=== PATIENT | female | born 1970 | race African-American/Black ===

== ENCOUNTER 2017-11-27 06:21 | Emergency (ER) | payer SELFPAY ==
[2017-11-27] MEDS ORDERED: Ketorolac Tromethamine 60 MG/2 ML VIAL ONE (06:44)
[2017-11-27] MEDS ORDERED: Acetaminophen 500 MG TAB ONE (06:44)
== END 2017-11-27 07:08 | disposition home or self-care (01) ==
LOC: NAV ERS 06:21
DX: M54.5 Low back pain (principal); K21.9 Gastro-esophageal reflux disease without esophagitis; F17.210 Nicotine dependence, cigarettes, uncomplicated
CPT/HCPCS: 96372; J1885

== ENCOUNTER 2018-05-14 14:38 | Emergency (ER) | payer SELFPAY ==
[2018-05-14] MEDS ORDERED: Lidocaine 1% w/Epinephrine 1:100K 30 ML VIAL ONE (15:12)
--- NOTE | 2018-05-14 17:07 | RAD ---
THREE VIEWS OF THE LEFT HAND 05/14/18 HISTORY: Left hand pain. FINDINGS: Three views of the left hand shows no evidence of acute fracture or dislocation. No radiopaque foreig n body is seen. No degenerative changes are present. IMPRESSION: No evidence of acute osseous abnormality. POS: [facility]
[2018-05-14] MEDS ORDERED: Bacitracin Zinc 1 Packet ONE (17:31)
== END 2018-05-14 17:30 | disposition home or self-care (01) ==
LOC: NAV ERS 14:38
DX: S61.412A Laceration without foreign body of left hand, initial encounter (principal); K21.9 Gastro-esophageal reflux disease without esophagitis; F17.210 Nicotine dependence, cigarettes, uncomplicated; W26.0XXA Contact with knife, initial encounter
CPT/HCPCS: 12001; J2001

== ENCOUNTER 2018-11-19 19:39 | Emergency (ER) | payer SELFPAY | END 2018-11-19 20:18 | disposition home or self-care (01) | LOC: NAV ERS 19:39 | DX: H60.92 Unspecified otitis externa, left ear (principal); K21.9 Gastro-esophageal reflux disease without esophagitis; F17.210 Nicotine dependence, cigarettes, uncomplicated; Z79.899 Other long term (current) drug therapy | CPT/HCPCS: 99282 ==

== ENCOUNTER 2019-03-14 19:09 | Emergency (ER) | payer SELFPAY ==
[2019-03-14] MEDS ORDERED: Cephalexin 250 MG CAP ONE (19:44)
[2019-03-14] MEDS ORDERED: Sulfameth/Trimethoprim DS 800-160mg TAB ONE (19:44)
== END 2019-03-14 19:53 | disposition home or self-care (01) ==
LOC: NAV ERS 19:09
DX: L73.9 Follicular disorder, unspecified (principal); L04.1 Acute lymphadenitis of trunk; L04.2 Acute lymphadenitis of upper limb; Z87.891 Personal history of nicotine dependence; K21.9 Gastro-esophageal reflux disease without esophagitis
CPT/HCPCS: 99282

== ENCOUNTER 2019-11-17 10:06 | Emergency (ER) | payer SELFPAY ==
[2019-11-17] MEDS ORDERED: Cyclobenzaprine 10 MG TAB ONE (10:40)
== END 2019-11-17 10:49 | disposition home or self-care (01) ==
LOC: NAV ERS 10:06
DX: M54.5 Low back pain (principal); G89.29 Other chronic pain; K21.9 Gastro-esophageal reflux disease without esophagitis; Z87.891 Personal history of nicotine dependence
CPT/HCPCS: 99283

== ENCOUNTER 2020-03-08 10:27 | Emergency (ER) | payer OTHER, SELFPAY ==
[2020-03-09 11:51] LABS: SARS-CoV-2 MS2 Positive; SARS-CoV-2 N Gene Negative; SARS-CoV-2 S Gene Negative; SARS-CoV-2 orf1ab Negative
== END 2020-03-08 11:36 | disposition home or self-care (01) ==
LOC: NAV ERS 10:27
DX: J02.9 Acute pharyngitis, unspecified (principal); M79.10 Myalgia, unspecified site; R53.83 Other fatigue; Z20.828 Contact with and (suspected) exposure to other viral communicable diseases; K21.9 Gastro-esophageal reflux disease without esophagitis; Z87.891 Personal history of nicotine dependence
CPT/HCPCS: 87081; 87430; 87635; 99283; U0003

== ENCOUNTER 2021-09-03 11:31 | Emergency (ER) | payer SELFPAY ==
[2021-09-03 20:24] LABS: SARS-CoV-2 PCR by NAA DETECTED (NotDetected)
== END 2021-09-03 12:20 | disposition home or self-care (01) ==
LOC: NAV ERS 11:31
DX: U07.1 COVID-19 (principal); K21.9 Gastro-esophageal reflux disease without esophagitis; Z87.891 Personal history of nicotine dependence
CPT/HCPCS: 99283; U0003; U0005

== ENCOUNTER 2023-08-26 16:00 | Outpatient (CLI) | payer OTHER | END 2023-08-26 16:01 | disposition home or self-care (01) | LOC: NAV RAD 16:00 | PROVIDERS: ATTEND Nurse Practitioner Family | DX: M25.571 Pain in right ankle and joints of right foot (principal) ==

== ENCOUNTER 2024-01-16 18:27 | Emergency (ER) | payer OTHER ==
[~2024-01-16 18:27] MED LIST: Iopamidol 370 76% 100 ML VIAL ONE
[2024-01-16 19:04] LABS: Bilirubin Negative (Negative); Blood, Urine Negative (Negative); Clarity Clear (Clear); Glucose, Urine (Dipstick) Negative (Negative); Ketone, Urine Negative (Negative); Leukocyte Negative (Negative); Nitrite Negative (Negative); Protein, Urine (Dipstick) Negative (Neg-Trace); Urobilinogen 0.2 mg/dL (Less than 2); pH, Urine 5.5 (5.0-9.0)
[2024-01-16 19:08] LABS: Specific Gravity, Urine 1.002 (1.002-1.036)
[2024-01-16 19:09] LABS: Bacteria/HPF Rare-Few HPF (None Seen); CAUTI Indications for Culture Pelvic or flank pain; WBC/HPF 0-3 HPF (0-3)
[2024-01-16 19:10] LABS: Urine Culture Reflex No No
[2024-01-16] MEDS ORDERED: Ketorolac Tromethamine 60 MG/2 ML VIAL ONE (19:15)
[2024-01-16 19:27] LABS: #Basophils 0.1 thou/uL (0.0-0.2); #Eosinphils 0.1 thou/uL (0.0-0.7); #Lymphocytes 2.1 thou/uL (1.20-3.40); #Monocytes 0.6 thou/uL (0.11-0.59); #Neutrophils 1.6 thou/uL (1.40-6.50); %Basophils 1.5 % (0.0-1.0); %Lymphocytes 46.6 % (21.0-51.0); %Monocytes 13.8 % (0.0-10.0); Hematocrit 36.5 % (36.0-47.0); Hemoglobin 11.9 g/dL (12.0-16.0); Mean Corpuscular HGB CONC 32.5 g/dL (32.0-36.0); Mean Corpuscular Hemoglobin 30.4 pg (27.0-31.0); Mean Corpuscular Volume 93.5 fl (78.0-98.0); Mean Platelet Volume 5.9 fL (7.4-10.4); Platelet Count 291 10x3/uL (130-400); RBC Distribution Width 11.7 % (11.5-14.5); White Blood Cell (WBC) Count 4.5 10x3/uL (4.8-10.8)
[2024-01-16 19:42] LABS: ALT (SGPT) 13 U/L (8-55); AST (SGOT) 18 U/L (5-34); Albumin 3.9 g/dL (3.5-5.0); Alkaline Phosphatase 72 U/L (40-110); Anion Gap 10 mmol/L (10-20); BUN (Urea Nitrogen) 18 mg/dL (9.8-20.1); Bilirubin, Total 0.3 mg/dL (0.2-1.2); Calc. Creatinine Clearance 0 mL/min (70-130); Calcium 9.2 mg/dL (7.8-10.44); Carbon Dioxide 25 mmol/L (22-29); Chloride 104 mmol/L (98-107); Estimated GFR 64; Globulin 2.9 g/dL (2.4-3.5); Glucose 110 mg/dL (70-105); Potassium 3.9 mmol/L (3.5-5.1); Protein, Total 6.8 g/dL (6.0-8.3); Sodium 135 mmol/L (136-145)
== END 2024-01-16 21:18 | disposition home or self-care (01) ==
LOC: NAV ERS 18:27
DX: M54.50 Low back pain, unspecified (principal); R10.32 Left lower quadrant pain; R30.0 Dysuria; K21.9 Gastro-esophageal reflux disease without esophagitis; Z87.891 Personal history of nicotine dependence; Z79.899 Other long term (current) drug therapy
CPT/HCPCS: 74177; 80053; 81001; 85025; 96372; J1885; Q9967

== ENCOUNTER 2024-01-21 12:35 | Outpatient (CLI) | payer OTHER | END 2024-01-21 12:36 | disposition home or self-care (01) | LOC: NAV RAD 12:35 | PROVIDERS: ATTEND Nurse Practitioner Family | DX: M54.41 Lumbago with sciatica, right side (principal); M47.816 Spondylosis without myelopathy or radiculopathy, lumbar region | CPT/HCPCS: 72100 ==

== ENCOUNTER 2024-03-01 16:56 | Emergency (ER) | payer OTHER, SELFPAY | END 2024-03-01 18:30 | disposition home or self-care (01) | LOC: NAV ERS 16:56 | DX: M76.61 Achilles tendinitis, right leg (principal); G89.29 Other chronic pain; K21.9 Gastro-esophageal reflux disease without esophagitis; Z79.899 Other long term (current) drug therapy; Z87.891 Personal history of nicotine dependence | CPT/HCPCS: 99283 ==

== ENCOUNTER 2024-07-12 07:04 | Emergency (ER) | payer OTHER ==
[2024-07-12] MEDS ORDERED: Loratadine 10 MG TAB PO SCH (08:15)
[2024-07-12] MEDS ORDERED: guaiFENesin ER 600 MG TAB ONE (08:22)
== END 2024-07-12 08:45 | disposition home or self-care (01) ==
LOC: NAV ERS 07:04
DX: J06.9 Acute upper respiratory infection, unspecified (principal); H10.9 Unspecified conjunctivitis; B34.9 Viral infection, unspecified; Z87.891 Personal history of nicotine dependence
CPT/HCPCS: 87804; 99283